=== PATIENT | female | born 1980 | race Caucasian/White ===

== ENCOUNTER 2017-07-29 22:16 | Emergency (ER) | payer SELFPAY ==
[2017-07-30] MEDS ORDERED: NS 0.9% 1000 ML* 1,000 ML IV ONE (04:22)
[2017-07-30 05:21] LABS: ABS Basophils 0.1 10^3/ul (0-0.2); ABS Eosinophils 0.2 10^3/ul (0-0.6); ABS Lymphocytes 4.7 10^3/ul (1.0-4.8); ABS Monocytes 0.9 10^3/ul (0-0.8); ABS Neutrophils 5.2 10^3/ul (1.5-7.7); ABS Nucleated RBC 0 10^3/ul; Eosinophil % 1.9 % (0-6); Hematocrit 38 % (35-47); Hemoglobin 12.8 g/dl (12.0-16.0); Lymphocyte % 42.9 % (25-47); Mean Corpuscular HGB Conc 34 g/dl (31-36); Mean Corpuscular Hemoglobin 32 pg (27-31); Mean Corpuscular Volume 94 fL (80-97); Mean Platelet Volume 9 um3 (7.4-10.4); Nucleated Red Blood Cells % 0; Platelet Count 251 10^3/ul (150-450); Red Blood Count 4.02 10^6/ul (4.0-5.4); Red Cell Distribution Width 13 % (10.5-15)
[2017-07-30 05:37] LABS: EGFR Non-African American 89.3 (>60)
--- NOTE | 2017-07-30 06:05 | ED ---
Salomon Anaya Nilda, scribed for Aureliano Cabral MD on 07/30/17 at 0558 . HPI Chest Pain - HPI Summary HPI Summary: This patient is a 48 year old F [place] [facility] [place] by with a chief complaint of constant midsternal CP since 4 days ago. The patient rates the pain 7/10 in severity. 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 Patient reports nausea and fatigue, but denies cough, vomiting, fever, sore throat, rhinorrhea, and abnormal weight loss. Patient states negative recent sick contact. 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 - History of Current Complaint Chief Complaint: EDGeneral Time Seen by Provider: 07/30/17 04:16 Hx Obtained From: Patient, Family/Rug Touch Up Painter - Onset/Duration: Started Days Ago, Still Present Timing: Constant Current Severity: Severe Pain Intensity: 7 Pain Scale Used: 0-10 Numeric Chest Pain Location: Mid Sternal Chest Pain Radiates: No Aggravating Factor(s): Nothing Alleviating Factor(s): Nothing Associated Signs and Symptoms: Positive: Other: - nausea and fatigue, but denies cough, vomiting, fever, sore throat, rhinorrhea, and abnormal weight loss. - Allergy/Home Medications Allergies/Adverse Reactions: Allergies Allergy/AdvReac Type Severity Reaction Status Date / Time No Known Allergies Allergy Verified 07/29/17 22:34 PMH/Surg Hx/FS Hx/Imm Hx Sensory History: Denies: Hx Legally Blind EENT History: Denies: Hx Deafness Infectious Disease History: No Infectious Disease History: Denies: Traveled Outside the [place] in Last 30 Days - Family History Known Family History: Positive: Hypertension - Social History Lives: With Family Alcohol Use: None Substance Use Type: Reports: None Smoking Status (MU): Never Smoked Tobacco Review of Systems Positive: Fatigue. Negative: Fever Negative: Sore Throat, Nasal Discharge Positive: Chest Pain - midsternal Negative: Cough Positive: Nausea, Other - negative abnormal weight loss. Negative: Vomiting All Other Systems Reviewed And Are Negative: Yes Physical Exam - Summary Physical Exam Summary: Appearance: Well appearing, no pain distress Skin: warm, dry, reflects adequate perfusion Head/face: normal Eyes: EOMI, SHERRY ENT: normal Neck: supple, non-tender Respiratory: CTA, breath sounds present Cardiovascular: RRR, pulses symmetrical Abdomen: non-tender, soft Bowel sounds: present Musculoskeletal: normal, strength/ROM intact Neuro: normal, sensory motor intact, A&Ox3 Triage Information Reviewed: Yes Vital Signs On Initial Exam: Initial Vitals Temp Pulse Resp BP Pulse Ox 98.8 F 73 16 112/73 99 07/29/17 22:20 07/29/17 22:20 07/29/17 22:20 07/29/17 22:20 07/29/17 22:20 Vital Signs Reviewed: Yes Diagnostics - Vital Signs Vital Signs Temp Pulse Resp BP Pulse Ox 07/30/17 05:03 100 07/30/17 00:55 98.4 F 66 16 112/78 100 07/29/17 22:20 98.8 F 73 16 112/73 99 - Laboratory Lab Results: Lab Results 07/30/17 07/30/17 07/30/17 Range/Units 05:05 05:05 05:05 WBC 11.0 H (3.5-10.8) 10^3/ul RBC 4.02 (4.0-5.4) 10^6/ul Hgb 12.8 (12.0-16.0) g/dl Hct 38 (35-47) % MCV 94 (80-97) fL MCH 32 H (27-31) pg MCHC 34 (31-36) g/dl RDW 13 (10.5-15) % Plt Count 251 (150-450) 10^3/ul MPV 9 (7.4-10.4) um3 Neut % (Auto) 47.0 (38-83) % Lymph % (Auto) 42.9 (25-47) % Dickenson % (Auto) 7.7 (1-9) % Eos % (Auto) 1.9 (0-6) % Baso % (Auto) 0.5 (0-2) % Absolute Neuts (auto) 5.2 (1.5-7.7) 10^3/ul Absolute Lymphs (auto) 4.7 (1.0-4.8) 10^3/ul Absolute Monos (auto) 0.9 H (0-0.8) 10^3/ul Absolute Eos (auto) 0.2 (0-0.6) 10^3/ul Absolute Basos (auto) 0.1 (0-0.2) 10^3/ul Absolute Nucleated RBC 0 10^3/ul Nucleated RBC % 0 D-Dimer, Quantitative < 200 (Less Than 230) ng/mL Sodium 138 (133-145) mmol/L Potassium 3.6 (3.5-5.0) mmol/L Chloride 108 (101-111) mmol/L Carbon Dioxide 23 (22-32) mmol/L Anion Gap 7 (2-11) mmol/L BUN 21 (6-24) mg/dL Creatinine 0.74 (0.51-0.95) mg/dL Est GFR ( Amer) 114.9 (>60) Est GFR (Non-Af Amer) 89.3 (>60) BUN/Creatinine Ratio 28.4 H (8-20) Glucose 93 (70-100) mg/dL Lactic Acid (0.5-2.0) mmol/L Calcium 9.2 (8.6-10.3) mg/dL Total Bilirubin 0.30 (0.2-1.0) mg/dL AST 14 (13-39) U/L ALT 16 (7-52) U/L Alkaline Phosphatase 50 (34-104) U/L Troponin I 0.02 (<0.04) ng/mL Total Protein 6.8 (6.4-8.9) g/dL Albumin 4.0 (3.2-5.2) g/dL Globulin 2.8 (2-4) g/dL Albumin/Globulin Ratio 1.4 (1-3) TSH Pending Beta HCG, Quant Pending Influenza A (Rapid) (Negative) Influenza B (Rapid) (Negative) 07/30/17 07/30/17 Range/Units 05:05 05:17 WBC (3.5-10.8) 10^3/ul RBC (4.0-5.4) 10^6/ul Hgb (12.0-16.0) g/dl Hct (35-47) % MCV (80-97) fL MCH (27-31) pg MCHC (31-36) g/dl RDW (10.5-15) % Plt Count (150-450) 10^3/ul MPV (7.4-10.4) um3 Neut % (Auto) (38-83) % Lymph % (Auto) (25-47) % Dickenson % (Auto) (1-9) % Eos % (Auto) (0-6) % Baso % (Auto) (0-2) % Absolute Neuts (auto) (1.5-7.7) 10^3/ul Absolute Lymphs (auto) (1.0-4.8) 10^3/ul Absolute Monos (auto) (0-0.8) 10^3/ul Absolute Eos (auto) (0-0.6) 10^3/ul Absolute Basos (auto) (0-0.2) 10^3/ul Absolute Nucleated RBC 10^3/ul Nucleated RBC % D-Dimer, Quantitative (Less Than 230) ng/mL Sodium (133-145) mmol/L Potassium (3.5-5.0) mmol/L Chloride (101-111) mmol/L Carbon Dioxide (22-32) mmol/L Anion Gap (2-11) mmol/L BUN (6-24) mg/dL Creatinine (0.51-0.95) mg/dL Est GFR ( Amer) (>60) Est GFR (Non-Af Amer) (>60) BUN/Creatinine Ratio (8-20) Glucose (70-100) mg/dL Lactic Acid 0.6 (0.5-2.0) mmol/L Calcium (8.6-10.3) mg/dL Total Bilirubin (0.2-1.0) mg/dL AST (13-39) U/L ALT (7-52) U/L Alkaline Phosphatase (34-104) U/L Troponin I (<0.04) ng/mL Total Protein (6.4-8.9) g/dL Albumin (3.2-5.2) g/dL Globulin (2-4) g/dL Albumin/Globulin Ratio (1-3) TSH Beta HCG, Quant Influenza A (Rapid) Negative (Negative) Influenza B (Rapid) Negative (Negative) Result Diagrams: 07/30/17 05:05 07/30/17 05:05 Lab Statement: Any lab studies that have been ordered have been reviewed, and results considered in the medical decision making process. - Radiology CXR Radiology Interpretation Completed By: ED Physician Zay WATT. - EKG 0419 Cardiac Rate: Bradycardia EKG Rhythm: Sinus Bradycardia - [address] Segment: Normal EKG Interpretation: nl axis Re-Evaluation - Re-Evaluation First Eval Re-Evaluation Time: 05:48 Comment: Pt feels better and is agreeable to D/C. Chest Pain Course/Dx - Course Course Of Treatment: Pt with non-descript pain, sx and fatigue. Possibly viral. Also TSH is quite high. Start low dose thyroid replacement. PCP referral line given. D/C in good condition. Assessment/Plan: EKG reveals sinus bradycardia, 53 bpm, nl axis, nl ST. CXR reveals NAD. Labs reveal Trop 0.02 and elevated TSH (11.48). - Chest Pain Differential Diagnosis/HQI/PQRI: Acute MN, ACS, Angina, CHF, Chest Wall, GI Disease, Lower Respiratory Infection, Other: - hypothyroid - Diagnoses Provider Diagnoses: Atypical chest pain, Viral syndrome Discharge - Discharge Plan Condition: Good Disposition: HOME Prescriptions: Famotidine TAB* [Pepcid 20 MG TAB*] 20 mg PO BID #20 tab Levothyroxine TAB* [Synthroid 25 MCG TAB*] 25 mcg PO DAILY #30 tab Patient Education Materials: Viral Syndrome (ED), Noncardiac Chest Pain (ED) Print Language: CHINESE Forms: *Work Release Referrals: [facility] [place] [facility] [Outside] Additional Instructions: Do not smoke. Drink lots of fluids. Ibuprofen as needed. Prescribed medication in pharmacy. Return if worse, fever, vomiting, trouble breathing, worse or other concerns. The documentation as recorded by the Salomon hebert Nilda accurately reflects the service I personally performed and the decisions made by me, Aureliano Cabral MD.
[2017-07-30 06:20] VITALS: BP 99/48
--- NOTE | 2017-07-30 08:07 | RAD ---
INDICATION: Chest pain COMPARISON: None. TECHNIQUE: Single AP portable view of the chest was obtained. FINDINGS: Image quality is compromised due to the relative inferiority of a portable chest x-ray. The heart and mediastinum exhibit normal size and contour. The lungs are grossly clear. There is no evidence of a large pleural effusion. Visualized bones are normal for the patient's age. IMPRESSION: No radiographic evidence for acute cardiopulmonary abnormality on this portable chest x-ray.
== END 2017-07-30 06:18 | disposition home or self-care (01) ==
LOC: ED 22:16
DX: R07.89 Other chest pain (principal); B34.9 Viral infection, unspecified
CPT/HCPCS: 36415; 71045; 80053; 83605; 84443; 84484; 84702; 85025; 85379; 87502; 93005; 96360; 99284

== ENCOUNTER 2017-10-07 14:26 | Emergency (ER) | payer SELFPAY ==
[2017-10-07] MEDS ORDERED: Lidocaine 1% INJ* 10 MG/ML 30 ML SDV ONE (15:57)
[2017-10-07] MEDS ORDERED: Tetanus Immune Globulin Human* 250 UNITS/ML IM ONE (16:18)
[2017-10-07] MEDS ORDERED: Tetanus-Diptheria Toxoids* 0.5 ML SYRINGE IM ONE (16:21)
[2017-10-07] MEDS ORDERED: Ibuprofen TAB* 800 MG PO ONE (17:15)
[2017-10-07] MEDS ORDERED: Cephalexin CAP* 500 MG PO ONE (17:15)
--- NOTE | 2017-10-07 17:20 | ED ---
Upper Extremity Pain - HPI Summary HPI Summary: Patient here with left thumb/hand laceration while utilizing an X-[employer] knife earlier today. She was attempting to cut board when this slipped and she sliced herself. Bleeding controlled with pressure dressing in triage. No cleaning yet. She denies numbness tingling or weakness and does not believe she has any foreign bodies within her wound. She has never had a tetanus vaccine. No other medical issues or injuries to report at this time. She is accompanied by a friend who interprets her Haitian for her. 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 - TRANSLATES - Allergies/Home Medications Allergies/Adverse Reactions: Allergies Allergy/AdvReac Type Severity Reaction Status Date / Time No Known Allergies Allergy Verified 07/29/17 22:34 PMH/Surg Hx/FS Hx/Imm Hx Previously Healthy: Yes Endocrine/Hematology History: Denies: Hx Anticoagulant Therapy, Hx Blood Disorders, Hx Unexplained Bleeding , Hx Coagulopothy, Autoimmune Disease Sensory History: Denies: Hx Legally Blind, Hx Deafness Opthamlomology History: Denies: Hx Legally Blind - Immunization History Immunizations Up to Date: Unable to Obtain/Confirm - she states she has not had a tetanus vaccine in the past Infectious Disease History: No Infectious Disease History: Denies: Hx of Known/Suspected MRSA, Traveled Outside the [place] in Last 30 Days - Family History Known Family History: Positive: Hypertension - Social History Lives: With Family Alcohol Use: None Hx Substance Use: No Substance Use Type: Reports: None Hx Tobacco Use: No Smoking Status (MU): Never Smoked Tobacco Review of Systems Musculoskeletal: Negative Skin: Other - lac Lt hand Neurological: Negative Psychological: Normal All Other Systems Reviewed And Are Negative: Yes Physical Exam Triage Information Reviewed: Yes Vital Signs On Initial Exam: Initial Vitals Pulse Pulse Ox 85 98 10/07/17 14:40 10/07/17 14:40 Vital Signs Reviewed: Yes Appearance: Positive: Well-Appearing, Well-Nourished, Pain Distress Skin: Positive: Warm, Skin Color Reflects Adequate Perfusion - linear laceration over lateral aspect of Lt thumb - oozing blood - no arterial laceration observed, no tendon or nerve involvement upon inspection of clean wound - no debris Head/Face: Positive: Normal Head/Face Inspection Eyes: Positive: EOMI ENT: Positive: Hearing grossly normal Cardiovascular: Positive: Pulses are Symmetrical in both Upper and Lower Extremities Musculoskeletal: Positive: Normal, Strength/ROM Intact Neurological: Positive: Normal, Sensory/Motor Intact, Alert, Oriented to Person Place, Time, CN Intact II-III Psychiatric: Positive: Normal - concerned but cooperative, pleasant Procedures - Laceration/Wound Repair 1 Location: upper extremity - Lt thumb Description: Linear Anesthesia: Local, 2.0%, Lido Length, Depth and Shape: 6cm x 3mm Betadine Prep?: Yes Laceration/Wound Explored: clean Closure: Single Layer Suture Type: Nylon - 5-0 Number of Sutures: 11 Layer Closure?: No Sterile Dressing Applied?: Yes - triple anbx + gauze + TERRA - hemodynamically stable, patient tolerated well Diagnostics - Vital Signs Vital Signs Temp Pulse Resp BP Pulse Ox 10/07/17 16:12 75 119/68 100 10/07/17 16:00 81 99 10/07/17 15:41 111/70 10/07/17 15:11 78 112/88 98 10/07/17 15:05 99.1 F 87 16 113/80 98 10/07/17 15:00 88 98 10/07/17 14:41 79 113/80 98 10/07/17 14:40 85 98 - Laboratory Lab Statement: Any lab studies that have been ordered have been reviewed, and results considered in the medical decision making process. Course/Dx - Diagnoses Provider Diagnoses: Laceration of left thumb Discharge - Sign-Out/Discharge Documenting (check all that apply): Discharge/Admit/Transfer - Discharge Plan Condition: Stable Disposition: HOME Prescriptions: Cephalexin CAP* [Keflex CAP*] 500 mg PO QID #20 cap Ibuprofen TAB* [Motrin TAB* 800 MG] 800 mg PO Q8HR PRN #20 tab PRN Reason: Pain Patient Education Materials: Care For Your Stitches (ED), Laceration (ED) Forms: *Work Release Referrals: No Primary Care Phys,NOPCP [Primary Care Provider] - Additional Instructions: Keep Dressing clean and dry and in place for the next 48 hours. After that time he may remove dressing, gently wash wound with soap and water, rinse well and pat dry with clean cloth. Reapply triple antibiotic ointment and clean gauze dressing. Rewrap with TERRA wrap. Continue this daily until sutures are removed. Call your PCP to schedule wound recheck and suture removal in 10-14 days. This may be done at [facility] (near the airport): [address] phone [phone] Pain medication and antibiotic have been sent to [facility]. Take antibiotic until complete. Take pain med as needed with food. REST, ICE, ELEVATE AND KEEP DRESSING CLEAN, DRY - DO NOT BEND THUMB OR USE THIS HAND (IE. DO NOT CARRY, LIFT, SQUEEZE, ETC) * If you develop redness, swelling, streaking, purulent drainage, fevers or chills, seek medical attention sooner or return to the emergency department. - Billing Disposition and Condition Condition: STABLE Disposition: HOME
[2017-10-07 18:17] VITALS: BP 109/78
== END 2017-10-07 18:15 | disposition home or self-care (01) ==
LOC: ED 14:26
DX: S61.412A Laceration without foreign body of left hand, initial encounter (principal); X58.XXXA Exposure to other specified factors, initial encounter; Y92.9 Unspecified place or not applicable
CPT/HCPCS: 99283; A9270-GY; J1670